=== PATIENT | male | born 1995 | race Caucasian/White ===

== ENCOUNTER 2024-10-29 19:51 | Outpatient (OUT) | payer OTHER, SELFPAY | END 2024-10-29 19:52 | disposition home or self-care (01) | LOC: SLEEP 19:51 | PROVIDERS: PCP Family Medicine; Visit Provider Family Medicine | DX: G47.33 Obstructive sleep apnea (adult) (pediatric) (principal); G47.11 Idiopathic hypersomnia with long sleep time | CPT/HCPCS: 95810 ==

== ENCOUNTER 2024-11-19 19:42 | Outpatient (OUT) | payer OTHER, SELFPAY ==
--- OUTSIDE RECORDS SUMMARY | 2024-11-19 19:44 | XMS_ITS | CCD ---
Author Organization [facility] Care Team Providers Care Director Learning Name Role Phone ZeyadVero jay Unavailable Jonna Tameka Unavailable BRITTNI HOWELL Admitting Unavailable BRITTNI HOWELL Consulting Unavailable REQUEST, NONE LISTED Primary Care UnavailBRITTNI Desai Attending Unavailable JONN ARRIAGA Consulting Unavailable REQUEST, NONE LISTED Primary Care Unavaila ble YASSINE, KURT WILD Attending Unavailable YASSINE, KURT WILD Admitting Unavailable YASSINE, SENIOR NUCLEAR MEDICINE TECHNOLOGIST WILD Consulting Unavailable FELIX STEELE Primary Care Unavailable WILL STEARNS Attending Unavailable Felix Steele MD Unavailable Felix Steele MD Primary Care Provider FELIX STEELE Attending Unavailable Medications Current Medications Medication Drug Class(es) Dates Sig (Normalized) Sig (Original) amoxicillin 500 mg oral capsule (1 source) Penicillin-class Antibacterial Start: 10-05-2022 take 1 capsule by mouth every eight hours Amoxicillin 500 MG 1 capsule Orally three times a day for 10 day(s) Sep, Active dextromethorphan hydrobromide 15 mg / guaiFENesin 400 mg / pseudoephedrine hydrochloride 60 mg oral tablet (1 source) alpha-Adrenergic Agonist, Uncompetitive U-nxmien-M-aspartat e Receptor Antagonist, Sigma-1 Agonist Start: 02-22-2024 take 4 tablets by mouth every twenty-four hours Pseudoephedrine- Dm-Guaifenesin (Capmist Dm) 60-15-400 mg tablet Active 1 TAB PO EVERY 4-6 HOURS February 22, 2024 12:00am do not exceed 4 doses per 24 hrs Completed/Discontinued Medications Medication Drug Class(es) Dates Sig (Normalized) Sig (Original) cefdinir 300 mg oral capsule (3 sources) Cephalosporin Antibacterial Start: 11-27-2015 take 1 capsule by mouth every twelve hours Cefdinir 300 MG 1 capsule Orally every 12 hrs for 10 day(s) Nov, Not-Taking Problems Active Problems Problem Classification Problem Date Documented Date Episodic/Chronic Abdominal pain (1 source) Unspecified abdominal pain; Translations: [Unspecified abdominal pain] Onset: 09-04-2024 Episodic Anxiety disorders (2 sources) Generalized anxiety disorder; Translations: [Generalized anxiety disorder] Onset: 09-26-2024 09-26-2024 Chronic E Codes: Natural/environment (1 source) Exposure to other specified factors, initial encounter; Translations: [EXPOSURE OTHER SPEC FACTORS INITIAL] Onset: 11-14-2022 Episodic Genitourinary symptoms and ill-defined conditions (4 sources) Dysuria; Translations: [DYSURIA] Onset: 12-27-2022 Episodic Nausea and vomiting (1 source) Vomiting Onset: 09-04-2024 Episodic Other upper respiratory infections (2 sources) Streptococcal pharyngitis; Translations: [Acute pharyngitis, unspecified] Episodic Otitis media and related conditions (1 source) Otitis media, unspecified, left ear Episodic Residual codes; unclassified (4 sources) Hypersomnia; Translations: [Hypersomnia, unspecified] Onset: 09-26-2024 09-26-2024 Chronic Spondylosis; intervertebral disc disorders; other back problems (4 sources) Dorsalgia, unspecified; Translations: [Muscle spasm of back] Onset: 11-10-2022 Episodic Sprains and strains (1 source) Strain of muscle, fascia and tendon of lower back, initial encounter; Translations: [STRAIN MUSC FASC TENDON LW BACK INT] Onset: 11-14-2022 Episodic Unclassified (1 source) Abdominal Pain; Vomiting Onset: 09-04-2024 Past or Other Problems Problem Classification Problem Date Documented Da te Episodic/Chronic Immunizations and screening for infectious disease (2 sources) Encounter for screening for other viral diseases; Translations: [Contact with and (suspected) exposure to other viral communicable diseases] Onset: 08-15-2021 Resolved: 09-28-2021 Episodic Unclassified (1 source) Contact with and (suspected) exposure to covid-19 Z20.822 Results Test Name Value Interpretation Reference Range Facility BASIC METABOLIC PANLon 09-04 Anion gap [Moles/Vol] 7 mmol/L Normal 5-15 [facility] Comment on above: Performed By: #### C BCA, BMP, 3040-3, LIVR #### [facility] ([id number]) [address] [place] [address] 22790 Calcium [Mass/Vol] 9.0 mg/dL Normal 8.5-10.5 [facility] Comment on above: Performed By: #### C BCA, BMP, 3040-3, LIVR #### [facility] ([id number]) [address] [place] [address] 76782 Chloride [Moles/Vol] 106 mmol/L Normal 98-109 [facility] Comment on above: Performed By: #### C BCA, BMP, 3040-3, LIVR #### [facility] ([id number]) [address] [place] [address] 47955 CO2 [Moles/Vol] 26 mmol/L Normal 22-32 [facility] Comment on above: Performed By: #### C BCA, BMP, 3040-3, LIVR #### [facility] ([id number]) [address] [place] [address] 51768 Creatinine [Mass/Vol] 0.71 mg/dL Normal 0.70-1.20 [facility] Comment on above: Result Comment: METH OD TRACEABLE TO IDMS STANDARD Performed By: #### C BCA, BMP, 3040-3, LIVR #### [facility] ([id number]) [address] [place] [address] 96896 eGFR (CKD-EPI) NON-RACE DEPENDENT >90 Normal >59 [facility] Comment on above: Result Comment: Reported eGFR is based on the CKD-EPI 2020 equation that does not use a race coefficient. Performed By: #### C BCA, BMP, 3040-3, LIVR #### [facility] ([id number]) [address] [place] [address] 32107 Glucose [Mass/Vol] 90 mg/dL Normal 65-99 [facility] Comment on above: Performed By: #### C BRI STYLES, 3040-3, LIVR #### [facility] ([id number]) [address] [place] [address] 12351 Potassium [Moles/Vol] 4.1 mmol/L Normal 3.5-5.0 [facility] Comment on above: Performed By: #### C BRI STYLES, 3040-3, LIVR #### [facility] ([id number]) [address] [place] [address] 38051 Sodium [Moles/Vol] 139 mmol/L Normal 134-146 [facility] Comment on above: Performed By: #### C BRI STYLES, 0-3, LIVR #### [facility] ([id number]) [address] [place] [address] 18594 Urea nitrogen [Mass/Vol] 10 mg/dL Normal 5-23 [facility] Comment on above: Performed By: #### C BRI STYLES, 0-3, LIVR #### [facility] ([id number]) [address] [place] [address] 87297 CBC AND AUTO DIFFon 09-04-20 24 ABSOLUTE BASOPHIL 0.0 X10E9/L Normal 0.0-0.2 [facility] Comment on above: Performed By: #### C BRI STYLES, 3040-3, LIVR #### [facility] ([id number]) [address] [place] [address] 98713 ABSOLUTE NEUTROPHIL 5.5 X10E9/L Normal 1.5-6.6 [facility] Comment on above: Performed By: #### C BRI STYLES, 3040-3, LIVR #### [facility] ([id number]) [address] [place] [address] 39741 Basophils/100 WBC (Bld) 0.2 % Normal [facility] Comment on above: Performed By: #### C BRI STYLES, 3039-11, LIVR #### [facility] ([id number]) [address] [place] [address] 51166 Eosinophils (Bld) [#/Vol] 0.1 10*3/uL Normal 0.0-0.4 [facility] Comment on above: Performed By: #### C JENSEN, [facility], 3, LIVR #### [facility] ([id number]) [address] [place] [address] 33361 Eosinophils/100 WBC (Bld) 1.4 % Normal [facility] Comment on above: Performed By: #### Niki STYLES [facility], 3039-11, LIVR #### [facility] ([id number]) [address] [place] [address] 85661 Erythrocyte distribution width (RBC) [Ratio] 13.7 % Normal 11.5-15.0 [facility] Comment on above: Performed By: #### C JENSEN [facility], 3039-11, LIVR #### [facility] ([id number]) [address] [place] [address] 54680 Hematocrit (Bld) [Volume fraction] 47.3 % Normal 39-49 [facility] Comment on above: Performed By: #### Niki STYLES [facility], 3039-11, LIVR #### [facility] ([id number]) [address] [place] [address] 99897 Hemoglobin (Bld) [Mass/Vol] 16.1 g/dL Normal 13.0-17.0 [facility] Comment on above: Performed By: #### C JENSEN BMP, 3, LIVR #### [facility] ([id number]) [address] [place] [address] 75900 Lymphocytes (Bld) [#/Vol] 2.8 10*3/uL Normal 1.0-3.5 [facility] Comment on above: Performed By: #### C BRI STYLES, 3039-11, LIVR #### [facility] ([id number]) [address] [place] [address] 68645 Lymphocytes/100 WBC (Bld) 30.6 % Normal [facility] Comment on above: Performed By: #### C BRI STYLES, 3039-11, LIVR #### [facility] ([id number]) [address] [place] [address] 92385 MCH (RBC) [Entitic mass] 29.1 pg Normal 27-34 [facility] Comment on above: Performed By: #### C BRI STYLES, 3039-11, LIVR #### [facility] ([id number]) [address] [place] [address] 72293 MCHC (RBC) [Mass/Vol] 34.0 g/dL Normal 32-36 [facility] Comment on above: Performed By: #### BRI Prince BCA, 3039-11, LIVR #### [facility] ([id number]) [address] [place] [address] 35685 MCV (RBC) [Entitic vol] 86 fL Normal 80-100 [facility] Comment on above: Performed By: #### BRI Prince BCA, 3039-11, LIVR #### [facility] ([id number]) [address] [place] [address] 59591 Monocytes (Bld) [#/Vol] 0.7 10*3/uL Normal 0-0.9 [facility] Comment on above: Performed By: #### BRI Pricne BCA, 3039-11, LIVR #### [facility] ([id number]) [address] [place] [address] 70696 Monocytes/100 WBC (Bld) 7.7 % Normal [facility] Comment on above: Performed By: #### C BRI STYLES, 3039-3, LIVR #### [facility] ([id number]) [address] [place] [address] 83979 Neutrophils/100 WBC (Bld) 60.1 % Normal [facility] Comment on above: Performed By: #### C JENSEN BMP, 3039-3, LIVR #### [facility] ([id number]) [address] [place] [address] 90990 Platelet mean volume (Bld) [Entitic vol] 7.5 fL Normal 7-12 [facility] Comment on above: Performed By: #### C JENSEN BMP, 3039-11, LIVR #### [facility] ([id number]) [address] [place] [address] 60802 Platelets (Bld) [#/Vol] 240 10*3/uL Normal 150-450 [facility] Comment on above: Performed By: #### C BRI STYLES, 3039-11, LIVR #### [facility] ([id number]) [address] [place] [address] 16182 RBC COUNT 5.53 X10E12/L Normal 4.10-5.70 [facility] Comment on above: Performed By: #### BRI Prince BCA, 3039-11, LIVR #### [facility] ([id number]) [address] [place] [address] 44190 WBC (Bld) [#/Vol] 9.2 10*3/uL Normal 4.0-11.0 [facility] Comment on above: Performed By: #### Niki STYLES, BMP, 3, LIVR #### [facility] ([id number]) [address] [place] [address] ABDOMEN AND PELVIS W CONT on 09-04-2024 CT ABDOMEN AND PELVIS W CONT CT ABDOMEN AND PELVIS W CONT CT ABDOMEN AND PELVIS HISTORY: Abdominal pain. Vomiting. COMPARISON STUDY: CT 01/15/2016. TECHNIQUE: CT scan of the abdomen and pelvis performed with IV no oral contrast. 100 mL of Omnipaque 300 was injected intravenously without complication. Coronal and sagittal reformats generated and reviewed. FINDINGS: LOWER THORAX: Unremarkable. HEPATOBILIARY: No focal hepatic lesions. No biliary ductal dilatation. Gallbladder is normal. SPLEEN: Unremarkable. PANCREAS: No focal masses or ductal dilatation. ADRENALS: No adrenal nodules. KIDNEYS/URETERS: No collecting system dilatation, stones, or solid mass lesions. GI TRACT: No bowel obstruction. Appendix not discretely seen, however no right lower qudarant inflammatory changes are seen. Colonic diverticulosis without inflammatory change. PELVIC ORGANS/BLADDER: Unremarkable. PERITONEUM/RETROPE RITONEUM: No free air or fluid. LYMPH NODES: No enlarged lymph nodes. VESSELS: No abdominal aortic aneurysm. BONES AND SOFT TISSUES: No suspicious osseous lesion. IMPRESSION: 1. No acute process abdomen/pelvis. All CT scans at this facility use dose modulation, iterative reconstruction, and/or weight based dosing when appropriate to reduce radiation dose to as low as reasonably achievable. 60 Finalized by Mendoza Medrano MD on 09/04/2024 5:28 PM Normal [facility] LIPASEon 09-04-2024 Lipase [Catalytic activity/Vol] 29 U/L Normal 17-40 [facility] Comment on above: Performed By: #### C BRI STYLES, 3040-3, LIVR #### [facility] ([id number]) [address] [place] [address] 76427 LIVER PANELon 09-04-2024 Albumin [Mass/Vol] 4.3 g/dL Normal 3.2-5.3 [facility] Comment on above: Performed By: #### C BRI STYLES, 3040-3, LIVR #### [facility] ([id number]) [address] [place] [address] 63192 ALP [Catalytic activity/Vol] 72 U/L Normal 39-130 [facility] Comment on above: Performed By: #### C BRI STYLES, 3039-11, LIVR #### [facility] ([id number]) [address] [place] [address] 61520 ALT [Catalytic activity/Vol] 32 U/L Normal 0-40 [facility] Comment on above: Performed By: #### C BRI STYLES, 3, LIVR #### [facility] ([id number]) [address] [place] [address] 07279 AST [Catalytic activity/Vol] 26 U/L Normal 0-41 [facility] Comment on above: Performed By: #### C JENSEN BMP, 3039-11, LIVR #### [facility] ([id number]) [address] [place] [address] 11542 Bilirubin [Mass/Vol] 0.2 mg/dL Low 0.3-1.2 [facility] Comment on above: Performed By: #### C BRI STYLES, 3039-11, LIVR #### [facility] ([id number]) [address] [place] [address] 61903 Bilirubin.direct [Mass/Vol] 0.2 mg/dL Normal 0.0-0.4 [facility] Comment on above: Performed By: #### C BRI STYLES, 3039-11, LIVR #### [facility] ([id number]) [address] [place] [address] 32297 Protein [Mass/Vol] 7.4 g/dL Normal 6.0-8.0 [facility] Comment on above: Performed By: #### C JENSEN BMP, 3, LIVR #### [facility] ([id number]) [address] [place] [address] [place] [address] No Panel InformationOrdered By: Luiza Berkowitz on 02-22-2024 Quick Strep (POC) [facility] CULTURE URINEon 12-27-2022 CULTURE URINE Culture Observations: NO GROWTH. Normal [facility] Comment on above: Performed By: #### U RCX #### [facility] [address] [place] [address] Dr. Clifford Swan CBC AUTO DIFFon 11-10-2022 BASO # 0.0 103/ul Normal 0.0-0.1 [facility] Comment on above: Performed By: #### C BC #### [facility] [address] [place] [address] Dr. Clifford Swan Basophils/100 WBC (Bld) 0.3 % Normal 0.2-2.0 [facility] Comment on above: Performed By: #### C BC #### [facility] [address] [place] [address] Dr. Clifford Swan EO # 0.1 103/ul Normal 0.0-0.7 [facility] Comment on above: Performed By: #### C BC #### [facility] [address] [place] [address] Dr. Clifford Swan Eosinophils/100 WBC (Bld) 1.4 % Normal 0.9-7.0 [facility] Comment on above: Performed By: #### C BC #### [facility] [address] [place] [address] Dr. Clifford Swan Erythrocyte distribution width (RBC) [Ratio] 13.6 % Normal 11.0-15.0 [facility] Comment on above: Performed By: #### C BC #### [facility] [address] [place] [address] Dr. Clifford Swan Hematocrit (Bld) [Volume fraction] 48.0 % Normal 42.0-54.0 [facility] Comment on above: Performed By: #### C BC #### [facility] [address] [place] [address] Dr. Clifford Swan Hemoglobin (Bld) [Mass/Vol] 16.1 g/dL Normal 14.0-18.0 [facility] Comment on above: Performed By: #### C BC #### [facility] [address] [place] [address] Dr. Clifford Swan IG # 0.03 10e3/ul Normal 0.00-0.03 [facility] Comment on above: Performed By: #### C BC #### [facility] [address] [place] [address] Dr. Clifford Swan IG % 0.4 % Normal 0.0-0.5 [facility] Comment on above: Performed By: #### C BC #### [facility] [address] [place] [address] Dr. Clifford Swan LYMPH # 1.6 103/ul Normal 1.2-3.8 [facility] Comment on above: Performed By: #### C BC #### [facility] [address] [place] [address] Dr. Clifford Swan Lymphocytes/100 WBC (Bld) 22.6 % Normal 20.5-60.0 [facility] Comment on above: Performed By: #### C BC #### [facility] [address] [place] [address] Dr. Clifford Swan MANUAL DIFF REQ NO Normal [facility] Comment on above: Performed By: #### C BC #### [facility] [address] [place] [address] Dr. Clifford Swan MCH (RBC) [Entitic mass] 28.4 pg Normal 25.9-34.0 [facility] Comment on above: Performed By: #### C BC #### [facility] [address] [place] [address] Dr. Clifford Swan MCHC (RBC) [Mass/Vol] 33.5 g/dL Normal 29.9-35.2 [facility] Comment on above: Performed By: #### C BC #### [facility] [address] [place] [address] Dr. Clifford Swan MCV (RBC) [Entitic vol] 84.7 fL Normal 80.0-94.0 [facility] Comment on above: Performed By: #### C BC #### [facility] [address] [place] [address] Dr. Clifford Swan MONO # 0.5 103/ul Normal 0.3-0.8 [facility] Comment on above: Performed By: #### C BC #### [facility] [address] [place] [address] Dr. Clifford Swan Monocytes/100 WBC (Bld) 7.3 % Normal 1.7-12.0 [facility] Comment on above: Performed By: #### C BC #### [facility] [address] [place] [address] Dr. Clifford Swan NEUT # 5.0 103/ul Normal 1.4-6.5 [facility] Comment on above: Performed By: #### C BC #### [facility] [address] [place] [address] Dr. Clifford Swan Neutrophils/100 WBC (Bld) 68.0 % Normal 43.0-75.0 [facility] Comment on above: Performed By: #### C BC #### [facility] [address] [place] [address] Dr. Clifford Swan Platelet mean volume (Bld) [Entitic vol] 9.3 fL Critically low 9.5-13.5 [facility] Comment on above: Performed By: #### C BC #### [facility] [address] [place] [address] Dr. Clifford Swan PLT 209 103/ul Normal 150-450 [facility] Comment on above: Performed By: #### C BC #### [facility] [address] [place] [address] Dr. Clifford Swna RBC 5.67 106/ul Normal 4.70-6.10 [facility] Comment on above: Performed By: #### C BC #### [facility] [address] [place] [address] Dr. Clifford Swan WBC 7.3 103/ul Normal 4.0-11.0 [facility] Comment on above: Performed By: #### C BC #### [facility] [address] [place] [address] ABD/PELVIS WO CONon 11-10 CT ABD/PELVIS WO CON EXAMINATION: CT ABD/PELVIS WO CON, 11/10/2022 10:09 AM EST HISTORY: CALCULUS OF KIDNEY COMPARISON: 01/15/2016 TECHNIQUE: CT scan of the abdomen and pelvis was performed without IV contrast. CT dose reduction technique was used, including Automated Exposure Control. ABDOMEN/PELVIS FINDINGS: Lower Chest: Unremarkable. Liver: Normal nonenhanced appearance and contour. Biliary/Gallbladde r: Unremarkable. Pancreas: Unremarkable. Spleen: Unremarkable. Adrenal Glands: Unremarkable. Kidneys: A punctate nonobstructive calculus is present in the left kidney. No ureteral calculus or hydronephrosis identified. Gastrointestinal/P eritoneum: No acute abnormality. Prior appendectomy. No free air or free fluid. Vascular: Unremarkable. Lymph Nodes: No enlarged lymph nodes by CT size criteria. Pelvic Organs: Unremarkable. Bladder: Unremarkable. Bones: No acute osseous abnormality. Soft tissues: Unremarkable. IMPRESSION: 1. No acute abnormality of the abdomen and pelvis. 2. Punctate nonobstructive calculus in the left kidney. 3. Prior appendectomy. Electronically authenticated by: JONN ARRIAGA Date: 2022-11-10 10:51 Normal [facility] ER URINE PROFILEon 3 Bilirubin Ql (U) Negative Normal NEGATIVE [facility] Comment on above: Performed By: #### E RUR #### [facility] [address] [place] [address] Dr. Clifford Swan Clarity (U) CLEAR Normal CLEAR [facility] Comment on above: Performed By: #### E RUR #### [facility] [address] [place] [address] Dr. Clifford Swan Color (U) YELLOW Normal YELLOW [facility] Comment on above: Performed By: #### E RUR #### [facility] [address] [place] [address] Dr. Clifford Swan ERUAHD A micrscopic examination will be performed if indicated. Normal [facility] Comment on above: Performed By: #### E RUR #### [facility] [address] [place] [address] Dr. Clifford Swan Glucose Ql (U) Negative Normal NEGATIVE [facility] Comment on above: Performed By: #### E RUR #### [facility] [address] [place] [address] Dr. Clifford Swan Hemoglobin Ql (U) Negative Normal NEGATIVE [facility] Comment on above: Performed By: #### E RUR #### [facility] [address] [place] [address] Dr. Clifford Swan Ketones Ql (U) Negative Normal NEGATIVE [facility] Comment on above: Performed By: #### E RUR #### [facility] [address] [place] [address] Dr. Clifford Swan LEUKOCYTES Negative Normal NEGATIVE [facility] Comment on above: Performed By: #### E RUR #### [facility] [address] [place] [address] Dr. Clifford Swan Nitrite Ql (U) Negative Normal NEGATIVE [facility] Comment on above: Performed By: #### E RUR #### [facility] [address] [place] [address] Dr. Clifford Swan pH (U) 6.0 [pH] Normal 5-9 [facility] Comment on above: Performed By: #### E RUR #### [facility] [address] [place] [address] Dr. Clifford Swan SPEC GRAVITY 1.020 Normal 1.005-<=1.025 [facility] Comment on above: Performed By: #### E RUR #### [facility] [address] [place] [address] Dr. Clifford Swan UA PROTEIN Negative Normal NEGATIVE/ TRACE [facility] Comment on above: Performed By: #### E RUR #### [facility] [address] [place] [address] Dr. Clifford Swan UR MICRO IND NOT INDICATED Normal [facility] Comment on above: Performed By: #### E RUR #### [facility] [address] [place] [address] Dr. Clifford Swan Urobilinogen Qn (U) 0.2 {Tono'U}/dL Normal 0.2 - 1. 0 [facility] Comment on above: Performed By: #### E RUR #### [facility] [address] [place] [address] Dr. Clifford Swan PROF 14(COMP METB)on 023 Albumin [Mass/Vol] 4.0 g/dL Normal 3.4-5.[address] [facility] Comment on above: Performed By: #### C MP #### [facility] [address] [place] [address] Dr. Clifford Swan Albumin/Globulin [Mass ratio] 1.3 {ratio} Normal [facility] Comment on above: Performed By: #### C MP #### [facility] [address] [place] [address] Dr. Clifford Swan ALP [Catalytic activity/Vol] 97 U/L Normal 46-116 [facility] Comment on above: Performed By: #### C MP #### [facility] [address] [place] [address] Dr. Clifford Swan ALT [Catalytic activity/Vol] 28 U/L Normal 16-63 [facility] Comment on above: Performed By: #### C MP #### [facility] [address] [place] [address] Dr. Clifford Swan Anion gap [Moles/Vol] 13.1 mmol/L Normal [facility] Comment on above: Performed By: #### C MP #### [facility] [address] [place] [address] Dr. Clifford Swan AST [Catalytic activity/Vol] 18 U/L Normal 15-37 [facility] Comment on above: Performed By: #### C MP #### [facility] [address] [place] [address] Dr. Clifford Swan Bilirubin [Mass/Vol] 0.5 mg/dL Normal 0.2-1.0 [facility] Comment on above: Performed By: #### C MP #### [facility] [address] [place] [address] Dr. Clifford Swan Calcium [Mass/Vol] 8.8 mg/dL Normal 8.5-10.[address] [facility] Comment on above: Performed By: #### C MP #### [facility] [address] [address] [address] Clifford Swan Chloride [Moles/Vol] 107 mmol/L Normal 98-107 [facility] Comment on above: Performed By: #### C MP #### [facility] [address] [place] [address] Dr. Clifford Swan CO2 [Moles/Vol] 26.3 mmol/L Normal 21.0-32.0 [facility] Comment on above: Performed By: #### C MP #### [facility] [address] [place] [address] Dr. Clifford Swan Creatinine [Mass/Vol] 0.78 mg/dL Normal 0.70-1.30 [facility] Comment on above: Performed By: #### C MP #### [facility] [address] [place] [address] Dr. Clifford Swan EGFR-AF SOUTH AFRICAN >60 Normal >=60 [facility] Comment on above: Performed By: #### C MP #### [facility] [address] [place] [address] Dr. Clifford Swan EGFR-NON AF SOUTH AFRICAN >60 Normal >=60 [facility] Comment on above: Performed By: #### C MP #### [facility] [address] [address] [address] Clifford Swan Globulin (S) [Mass/Vol] 3.2 g/dL Normal [facility] Comment on above: Performed By: #### C MP #### [facility] [address] [address] [address] Clifford Swan Glucose [Mass/Vol] 100 mg/dL Normal 74-[address] [facility] Comment on above: Performed By: #### C MP #### [facility] [address] [address] [address] Clifford Swan Potassium [Moles/Vol] 4.4 mmol/L Normal 3.5-5.1 [facility] Comment on above: Performed By: #### C MP #### [facility] [address] [place] [address] Dr. Clifford Swan Protein [Mass/Vol] 7.2 g/dL Normal 6.4-8.[address] [facility] Comment on above: Performed By: #### C MP #### [facility] [address] [address] [address] Clifford Swan Sodium [Moles/Vol] 142 mmol/L Normal 136-145 [facility] Comment on above: Performed By: #### C MP #### [facility] [address] [address] [address] Clifford Swan Urea nitrogen [Mass/Vol] 9.0 mg/dL Normal 7.0-18.0 [facility] Comment on above: Performed By: #### C MP #### [facility] [address] [place] [address] Dr. Clifford Swan Urea nitrogen/Creatinine [Mass ratio] 11.5 mg/mg Normal [facility] Comment on above: Performed By: #### C MP #### [facility] [address] [place] [address] Dr. Clifford Swan COVID/FLU/RSV RT-PCRon 10-05 SARS-CoV-2 (COVID-19) RNA GHADA+probe Ql (Unsp spec) Negative [facility] Other COVID/FLU/RSV RT-PCR Negative [facility] Other Quick Strepon 10-05-2022 S. pyogenes Org specific cx Ql (Throat) Positive [facility] Other Quick Strep [facility] Other COVID Quick Testingon 2021 Result Negative [facility] Other COVID Quick Testingon 2020 Result Negative [facility] Other Vital Signs Date Time Vital Sign Value Performing Clinician Facility 09-26-2024 15:11-0500 Body height 165.1 cm Felix Steele MD Work Phone: [facility] 09-26-2024 15:11-0500 Body mass index (BMI) [Ratio] 32.45 kg/m2 Felix Steele MD Work Phone: [facility] 09-26-2024 15:11-0500 Body temperature 98.01 [degF] Felix Steele MD Work Phone: [facility] 09-26-2024 15:11-0500 Body weight 88.45 kg Felix Steele MD Work Phone: [facility] 09-26-2024 15:11-0500 Diastolic blood pressure 68 mm[Hg] Felix Steele MD Work Phone: [facility] 09-26-2024 15:11-0500 Heart rate 94 /min Felix Steele MD Work Phone: [facility] 09-26-2024 15:11-0500 Respiratory rate 20 /min Felix Steele MD Work Phone: [facility] 09-26-2024 15:11-0500 SaO2% (BldA) [Mass fraction] 98 % Felix Steele MD Work Phone: [facility] 09-26-2024 15:11-0500 Systolic blood pressure 140 mm[Hg] Felix Steele MD Work Phone: [facility] 02-22-2024 11:02-0400 Body height 165.1 cm [facility] 02-22-2024 11:02-0400 Body mass index (BMI) [Ratio] 32.4 kg/m2 [facility] 02-22-2024 11:02-0400 Body temperature 97.7 [degF] [facility] 02-22-2024 11:02-0400 Body weight 88.45 kg [facility] 02-22-2024 11:02-0400 Diastolic blood pressure 97 mm[Hg] [facility] 02-22-2024 11:02-0400 Heart rate 90 /min [facility] 02-22-2024 11:02-0400 SaO2% (BldA) [Mass fraction] 97 % [facility] 02-22-2024 11:02-0400 Systolic blood pressure 144 mm[Hg] [facility] 10-05-2022 14:30-0500 Body height 165.1 cm Tameka Coyle Other [facility] Other 10-05-2022 14:30-0500 Body mass index (BMI) [Ratio] 30.78 kg/m2 Tameka Coyle Other [facility] Other 10-05-2022 14:30-0500 Body temperature 97.5 [degF] Tameka Coyle Other [facility] Other 10-05-2022 14:30-0500 Body weight 83.92 kg Tameka Jonna Other [facility] Other 10-05-2022 14:30-0500 Diastolic blood pressure 100 mm[Hg] Tameka Jonna Other [facility] Other 10-05-2022 14:30-0500 Respiratory rate 18 /min Tameka Limmond Other [facility] Other 10-05-2022 14:30-0500 SaO2% (BldA) [Mass fraction] 96 % Tameka Jonna Other [facility] Other 10-05-2022 14:30-0500 Systolic blood pressure 140 mm[Hg] Tameka Jonna Other [facility] Other Encounters Encounter Date Encounter Type Care Provider Facility Start: 09-26-2024 End: 09-26-2024 ambulatory FEILX STEELE Not Available Start: 09-26-2024 End: 09-26-2024 Office outpatient visit 15 minutes Felix Steele MD Work Phone: [facility] Comment on above: Hypersomnia (Primary Dx); Annual physical exam Start: 09-26-2024 End: 09-26-2024 Bamboo flowsheet Felix Steele MD Work Phone: [facility] Start: 09-26-2024 End: 09-26-2024 Bamboo flowsheet Felix Steele MD Work Phone: [facility] Start: 09-26-2024 End: 09-26-2024 Patient encounter procedure Felix Steele MD Work Phone: [facility] Start: 09-04-2024 End: 09-04-2024 Emergency department patient visit FELIX STEELE [facility] Start: 02-22-2024 End: 02-22-2024 ambulatory [facility] Work Phone: Start: 02-22-2024 End: 02-22-2024 Patient encounter procedure [facility] Work Phone: Start: 12-27-2022 End: 12-27-[address] NONE LISTED REQUEST Facility: Start: 11-10-2022 End: 11-10-2022 ambulatory BRITTNI GILLILAND . Facility: Start: 10-05-2022 End: 10-05-2022 ambulatory Tameka Coyle Other [facility] Other Start: 10-05-2022 Office outpatient vi sit 25 minutes Tameka Coyle [facility] Start: 09-28-2021 End: 09-28-2021 ambulatory Tameka Coyle Other [facility] Other Start: 09-28-2021 Nursing evaluation o f patient and report Tameka Coyle [facility] Start: 08-15-2021 End: 08-15-2021 ambulatory Vero Jeffers Other [facility] Other Start: 08-15-2021 Office outpatient vi sit 5 minutes Vero Jeffers [facility] Procedures Date Procedure Procedure Detail Performing Clinician Start: 02-22-2024 Quick Strep (POC) Plan of Treatment Date Care Activity Detail Author Start: 09-26-2024 End: 09-26-2025 Basic metabolic 1998 panel - Serum or Plasma Basic metabolic panel Lab Routine Annual physical exam Expected: 09/26/2024 (Approximate), Expires: 09/26/2025 [facility] Comment on above: Expected: 09/26/2024 (Approximate), Expires: 09/26/2025 Start: 09-26-2024 End: 09-26-2025 CBC W Auto Differential panel - Blood CBC and differential Lab Routine Annual physical exam Expected: 09/26/2024 (Approximate), Expires: 09/26/2025 [facility] Comment on above: Expected: 09/26/2024 (Approximate), Expires: 09/26/2025 Start: 09-26-2024 End: 09-26-2025 Hemoglobin A1c/Hemoglobin.total in Blood Hemoglobin A1c Lab Routine Annual physical exam Expected: 09/26/2024 (Approximate), Expires: 09/26/2025 [facility] Work Phone: Comment on above: Expected: 09/26/2024 (Approximate), Expires: 09/26/2025 Start: 09-26-2024 End: 09-26-2025 Hepatic function 2000 panel - Serum or Plasma Hepatic function panel Lab Routine Annual physical exam Expected: 09/26/2024 (Approximate), Expires: 09/26/2025 [facility] Comment on above: Expected: 09/26/2024 (Approximate), Expires: 09/26/2025 Start: 09-26-2024 End: 09-26-2025 Lipid 1996 panel - Serum or Plasma Lipid panel Lab Routine Annual physical exam Expected: 09/26/2024 (Approximate), Expires: 09/26/2025 [facility] Comment on above: Expected: 09/26/2024 (Approximate), Expires: 09/26/2025 Start: 09-26-2024 End: 09-26-2025 Thyrotropin [Units/volume] in Serum or Plasma TSH Lab Routine Annual physical exam Expected: 09/26/2024 (Approximate), Expires: 09/26/2025 [facility] Comment on above: Expected: 09/26/2024 (Approximate), Expires: 09/26/2025 Start: 05-26-2024 Influenza vaccination Influenza Vacc ine (#1) [facility] Healthcare Payers Date Payer Category Payer Private Health Insurance [employer] [id number] 1994 Unknown [id number] 1994 Unknown [id number] 1994 Unknown [id number] 1994 Unknown [id number] 1959 Unknown [id number] Private Health Insurance [id number] Unknown [facility] [id number] Social History Date Type Detail Facility Unknown if ever smoked [facility] Other Start: 09-26-2024 Sex Assigned At N [facility] Other Start: 02-22-2024 Tobacco smoking status NDIS Ex-smoker (finding) [facility] Start: 1995 Sex Assigned At Male [facility] Start: 09-26-2024 Tobacco smoking status NHIS Occasional tobacco smoker [facility] History of tobacco use Cigarette Smoker [facility] Start: 09-26-2024 Tobacco use and exposure Smokeless tobacco non-user [facility] Start: 09-26-2024 History of Social function [facility] Start: 1995 Sex assigned at Not on file [facility] Tobacco smoking status [facility] Tobacco smoking consumption unknown [facility] History of Present illness Narrative 09-26-2024 Felix Steele MD - 09/26/2024 3:36 PM Arielle Steele MD - 09/26/2024 3:00 PM ESTDION MONSIVAIS - 09/26/2024 3:00 PM EST Note Date & Type Note Facility 09-26-2024 History of Presen t illness Narrative Associated Problem(s): Hypersomnia Signs of PAULINE and check sleep study. Check labs. Images from the original note were not included. Subjective Patient ID: Jim Parham is a 29 y.o. male who presents for Fatigue (Low energy). C/o severe fatigue over the past few months and getting worse. C/o not sleeping well and restless at night. Not rested in am and tired all day. Snores and on a few occasions has woken up gasping for air. Never told stops breathing during sleep. Tired all day and falls asleep easily. Concerned of potential PAULINE and interested in a sleep study. To ER 1 month ago and labs including CBC normal. Review of Systems Constitutional: Negative for fatigue. Respiratory: Negative for cough, shortness of breath and wheezing. Cardiovascular: Negative for chest pain and palpitations. Gastrointestinal: Negative for abdominal pain, diarrhea, nausea and vomiting. Genitourinary: Negative for dysuria. Objective Physical Exam Constitutional: General: He is not in acute distress. Appearance: Normal appearance. HENT: Head: Normocephalic. Right Ear: Tympanic membrane and ear canal normal. Left Ear: Tympanic membrane and ear canal normal. Eyes: Extraocular Movements: Extraocular movements intact. Pupils: Pupils are equal, round, and reactive to light. Cardiovascular: Rate and Rhythm: Normal rate and regular rhythm. Heart sounds: No murmur heard. No friction rub. No gallop. Pulmonary: Breath sounds: Normal breath sounds. No wheezing, rhonchi or rales. Abdominal: General: Bowel sounds are normal. There is no distension. Palpations: Abdomen is soft. Tenderness: There is no abdominal tenderness. There is no guarding or rebound. Musculoskeletal: Left lower leg: No edema. Neurological: Mental Status: He is alert. Assessment/Plan Problem List Items Addressed This Visit Annual physical exam Relevant Orders Hemoglobin A1c Basic metabolic panel CBC and differential Hepatic function panel Lipid panel TSH Hypersomnia - Primary Signs of PAULINE and check sleep study. Check labs. fa documented in this encounter [facility] Evaluation note 10-05-2022 Note Date & Type Note Facility 10-05-2022 Evaluation note Encounter Date Diagnosis Assessment Notes Sep, Contact with and (suspected) exposure to covid-19 (ICD-10 - Z20.822) Sep, Strep pharyngitis (ICD-10 - J02.0) Strep throat material was printed Drink plenty fluids, get plenty of rest. Take the amoxicillin as prescribed until gone. Take Tylenol or Motrin for aches pains or fevers. Follow-up with your family physician if no improvement in 2 to 3 days Sep, Sore throat (ICD-10 - J02.9) Sep, Left otitis media, unspecified otitis media type (ICD-10 - H66.92) [facility] Other Evaluation note 09-28-2021 Note Date & Type Note Facility 09-28-2021 Evaluation note Encounter Date Diagnosis Assessment Notes Sep, Contact with and (suspected) exposure to other viral communicable diseases (ICD-10 - Z20.828) Sep, Other Additional time spent conducting pre-visit phone call, screening for symptoms, instructions on social distancing, application and removal of PPE, and cleaning of examination room, equipment and supplies was preformed. Patient education given for testing methodology and results. Patient care instructions given in writting by [facility] document. [facility] Other Evaluation note 08-15-2021 Note Date & Type Note Facility 08-15-2021 Evaluation note Encounter Date Diagnosis Assessment Notes Jul, Encounter for screening for other viral diseases (ICD-10 - Z11.59) Jul, Other Additional time spent conducting pre-visit phone call, screening for symptoms, instructions on social distancing, application and removal of PPE, and cleaning of examination room, equipment and supplies was preformed. Patient education given for testing methodology and results. Patient care instructions given in writting by [facility] document. [facility] Other Evaluation note Note Date & Type Note Facility Evaluation note No assessment information availa [facility] Work Phone: Evaluation note Note Date & Type Note Facility Evaluation note Diagnosis Hypersomnia- Primary Hypersomnia, unspecified Annual physical exam Routine general medical examination at a health care facility documented in this encounter [facility] History general Narrative - Reported Note Date & Type Note Facility History general Narrative - Reported Type Surgical History appendectomy [facility] Other Summary Purpose Family History No Family History Records Found Relationship Condition Age at Onset Recorded Date/T faisal father Heart disease Unknown Hypertension Unknown Not Specified Hypertension Unknown Advance Directives No Advanced Directives Records Found Advance Directive Response Recorded Date/ Time Advance Directives No February 21 10:56am Chief Complaint and Reason for Visit Chief Complaint cough,congestion Additional Source Comments REASON FOR VISIT (unrecogniz ed section and content) Reason Comments Fatigue Low energy (unrecognized sect ion and content) No Status Records FoundNo Status Records FoundNo Status Records Found INFORMATION SOURCE (unrecogn ized section and content) DATE CREATED AUTHOR 12/31/2022 [facility] DATE CREATED AUTHOR AUTHOR'S ORGANIZ ATION 09/07/[address] [facility] DATE CREATED AUTHOR AUTHOR'S ORGANIZ ATION 10/03/2024 [facility] [employer] Care Teams (unrecognized sec tion and content) Team Status: Active Member Role Status Dates PHYSICIAN NO FAMILY Primary Care Provider Active Team Status: Inactive Member Role Status Dates PHYSICIAN NO FAMILY Primary Care Provider Active Start: February 22, 2024 End: February 22, 2024 Luiza Berkowitz APRN Attending Provider Active Start: February 22, 2024 End: February 22, 2024 Director Learning Relationship Specialty Start Date End Date Felix Steele MD [address] [place] [phone] PCP - [facility] [employer] 03/20/22 09/24/99 Felix Steele MD [address] [place] [phone] PCP - [facility] 09/26/24 Director Learning Relationship Specialty Start Date End Date Felix Steele MD [address] [place] [phone] PCP - [facility] 03/20/22 09/24/99 Felix Steele MD [address] [place] [phone] PCP - [facility] 09/26/24 Goals (unrecognized section and content) Goals may be documented in a n alternate section FOR RECORDS PERTAINING TO PATIENTS WHO ARE OR HAVE BEEN ENROLLED IN A CHEMICAL DEPENDENCY/SUBSTANCEABUSE PROGRAM, SOME INFORMATION MAY BE OMITTED. This clinical summary was aggregated from multiple sources. Caution should be exercised in using it in the provision of clinical care. This summary normalizes information from multiple sources, and as a consequence, information in this document may materially change the coding, format and clinical context of patient data. In addition, data may be omitted in some cases. CLINICAL DECISIONS SHOULD BE BASED ON THE PRIMARY CLINICAL RECORDS. [facility]. provides no warranty or guarantee of the accuracy or completeness of information in this document.
== END 2024-11-19 19:43 | disposition home or self-care (01) ==
LOC: SLEEP 19:42
PROVIDERS: PCP Family Medicine; Visit Provider Family Medicine
DX: G47.33 Obstructive sleep apnea (adult) (pediatric) (principal)
CPT/HCPCS: 95811